=== PATIENT | male | born 1985 | race Caucasian/White ===

== ENCOUNTER → 2018-05-24 | Outpatient (CLI) | payer BC ==
[~2018-05-24] MED LIST: ACET500T68 PO; BUPR-124 PO; HYDR-389 PO; IBUP-136 PO; TRAM-420 PO
--- NOTE | 2018-05-24 16:25 | RADIOLOGY IMAGING REPORT ---
FACILITY: [facility] [place] PATIENT NAME: Jose Hawkins : 1985 MR: [id number] V: [id number] EXAM DATE: ORDERING PHYSICIAN: HU TALAVERA TECHNOLOGIST: Location: [facility] Patient: Jose Hawkins : 1985 Visit/Account:[id number] Date of Sevice: 05/24/2018 Study: CT scan of the brain without intravenous contrast. Indication: Headache for two months Comparison study:None Technique: Multiple axial images were obtained through the brain without the use of intravenous contr ast. One of the following dose optimization techniques was utilized in the performance of this exam: Autom ated exposure control; adjustment of the mA and/or kV according to the patient's size; or use of an i terative reconstruction technique. Specific details can be referenced in the facility's radiology C T exam operational policy. The examination demonstrates no evidence of acute intracranial hemorrhage. There is no evidence of ex tra-axial collection or hydrocephalus. There is no abnormal density identified within the brain parenchyma. There is no evidence of disruption of the peripheral muhammad-white junction. The bony structures are unremarkable. IMPRESSION:Unremarkable CT scan of the brain without contrast. Report Dictated By: Gonzalez Ku at 05/24/2018 4:17 PM Report E-Signed By: Gonzalez Ku at 05/24/2018 4:22 PM WSN:[id number]
== END ==
LOC: CT 07:08
PROVIDERS: ATTEND Nurse Practitioner Family
DX: R51 Headache (principal)
CPT/HCPCS: 70450

== ENCOUNTER → 2018-05-27 | Outpatient (REF) | payer BC ==
[2018-05-27 18:25] LABS: PLATELET COUNT, AUTOMATED 207 K/uL (150-450)
== END ==
LOC: ZZSENDIN 18:05
PROVIDERS: ATTEND Nurse Practitioner Family
DX: R51 Headache (principal)
CPT/HCPCS: 82040; 82247; 82310; 82374; 82435; 82565; 82947; 84075; 84132; 84155; 84295; 84450; 84460; 84520; 85025

== ENCOUNTER → 2018-06-29 | Outpatient (CLI) | payer BC ==
--- NOTE | 2018-06-29 10:15 | RADIOLOGY IMAGING REPORT ---
FACILITY: PATIENT NAME: Jose Hawkins : 1985 MR: [id number] V: [id number] EXAM DATE: ORDERING PHYSICIAN: MARINA HENRIQUEZ TECHNOLOGIST: Location: [facility] Patient: Jose Hawkins : 1985 Visit/Account:[id number] Date of Sevice: 06/29/2018 Study: MRI of the cervical spine without gadolinium contrast Indication: Cervicogenic headaches Comparison study: None Technique: Multiplanar MRI sequences were obtained through the cervical spine without the use of gado linium contrast. Alignment: There is normal alignment of the cervical vertebrae. There is straightening of the normal cervical lordosis. Cervical vertebrae: There is no abnormal signal identified within the cervical vertebrae. Cervical spinal cord: The cervical spinal cord is unremarkable. There is no evidence of Chiari I malformation. Paraspinal soft tissues: Unremarkable Disc spaces: C2/3: Unremarkable C3/4: Unremarkable C4/5: At this level, there is no significant disc pathology. There is left-sided uncinate hypertroph y. There is no significant neural foraminal stenosis or spinal stenosis. C5/6: Unremarkable C6/7: Unremarkable C7/T1: Unremarkable IMPRESSION: No significant disc pathology identified. There is no significant neural foraminal steno sis or spinal stenosis. The cervical spinal cord is unremarkable. Report Dictated By: Gonzalez Ku at 06/29/2018 10:08 AM Report E-Signed By: Gonzalez Ku at 06/29/2018 10:11 AM WSN:[id number]
== END ==
LOC: MRI 00:44
PROVIDERS: ATTEND Physician Assistant Medical
DX: M54.81 Occipital neuralgia (principal); R51 Headache
CPT/HCPCS: 72141

== ENCOUNTER → 2018-11-17 | Outpatient (CLI) | payer BC ==
[~2018-11-17] MED LIST changes: +ACET-1966 PO; +GADOBENATE 529MG/1ML 15ML VIAL IVP ONE
--- NOTE | 2018-11-17 14:38 | RADIOLOGY IMAGING REPORT ---
FACILITY: [facility] [place] PATIENT NAME: Jose Hawkins : 1985 MR: [id number] V: [id number] EXAM DATE: ORDERING PHYSICIAN: LEWIS BECKWITH TECHNOLOGIST: Location: [facility] Patient: Jose Hawkins : 1985 Visit/Account:[id number] Date of Sevice: 11/17/2018 MR BRAIN/BRAIN STEM W/ & W/O CON Comparisons: Head CT scan without contrast dated May 24, 2018 Additional pertinent history: Migraines TECHNIQUE: Multiplanar, multisequence brain MRI was performed with and without gadolinium contrast. CONTRAST: 15 ml of MultiHance. FINDINGS: Sagittal midline structures and craniocervical junction: Negative. Midline shift: None. Ventricles: Negative. Brain parenchyma: Diffusion weighted imaging: Negative. Gradient sequence: Negative. T2 weighted FLAIR images: Negative. Extra-axial spaces: Negative. Dural venous sinuses and major arterial flow voids: Negative. Intracranial enhancement: Negative.. Mastoid air cells and paranasal sinuses: Negative. Surrounding soft tissues and orbits: Negative. Impression: Normal brain MRI with and without contrast. Report Dictated By: Kam Parada MD at 11/17/2018 2:30 PM Report E-Signed By: Kam Parada MD at 11/17/2018 2:32 PM WSN:[id number]
== END ==
LOC: MRI 01:39
PROVIDERS: ATTEND Family Medicine
DX: G43.009 Migraine without aura, not intractable, without status migrainosus (principal)
CPT/HCPCS: 70553; A9577